=== PATIENT | male | born 1970 | race African-American/Black ===

== ENCOUNTER 2017-09-02 10:45 | Emergency (ER) | payer SELFPAY ==
[2017-09-02] MEDS ORDERED: Ibuprofen 800 MG TAB ONE (12:51)
== END 2017-09-02 13:00 | disposition home or self-care (01) ==
LOC: ERS 10:45
DX: M54.6 Pain in thoracic spine (principal); F17.210 Nicotine dependence, cigarettes, uncomplicated; V43.52XA Car driver injured in collision with other type car in traffic accident, initial encounter
CPT/HCPCS: 99283

== ENCOUNTER 2017-09-26 20:08 | Observation (INO) | payer OTHER, SELFPAY ==
[~2017-09-26 20:08] MED LIST: ISOVUE-370 76%-LOCM 1 ML ONE
[2017-09-26 20:23] LABS: #Basophils 0.1 thou/uL (0.0-0.2); #Eosinphils 0.1 thou/uL (0.0-0.7); #Lymphocytes 2.2 thou/uL (1.20-3.40); #Monocytes 0.6 thou/uL (0.11-0.59); %Basophils 0.8 % (0.0-1.0); %Eosinophils 1.3 % (0.0-10.0); %Lymphocytes 20.1 % (21.0-51.0); %Monocytes 5.5 % (0.0-10.0); %Neutrophils 72.4 % (42.0-75.0); Hemoglobin 11.7 g/dL (14.0-18.0); Mean Corpuscular Hemoglobin 29.8 pg (27.0-31.0); Mean Corpuscular Volume 87.8 fl (80.0-94.0); Mean Platelet Volume 6.6 fL (7.4-10.4); Platelet Count 253 thou/uL (130-400); RBC Distribution Width 12.1 % (11.5-14.5); Red Blood Cell (RBC) Count 3.92 mill/uL (4.70-6.10)
--- NOTE | 2017-09-26 20:26 | RAD ---
PORTABLE CHEST ONE VIEW: 09/26/17 at 8:19 p.m. HISTORY: Trauma, chest pain. FINDINGS/IMPRESSION: The heart size is normal. The lungs are expanded without focal areas of consolidation, pneumothorax o r pleural effusions. POS: [facility]
[2017-09-26 20:31] LABS: PTT 31.2 SEC (22.9-36.1)
[2017-09-26 20:35] LABS: Prothrombin Time 13.6 SEC (12.0-14.7)
--- NOTE | 2017-09-26 20:36 | CT ---
CT BRAIN 09/26/17 PROVIDED CLINICAL HISTORY: Level I trauma, ejected from horse. FINDINGS: There is no evidence for intracranial hemorrhage or mass effect. The ventricular system appears donna l in size and morphology. Minimal mucosal thickening seen involving the left maxillary sinus. The ext racranial soft tissues and osseous structures demonstrate no evidence for traumatic abnormality. IMPRESSION: No evidence for intracranial hemorrhage or mass effect. POS: [facility]
--- NOTE | 2017-09-26 20:38 | CT ---
CT CERVICAL SPINE 09/26/17 PROVIDED CLINICAL HISTORY: Level I trauma, ejected from horse. FINDINGS: there is no evidence for fracture or traumatic subluxation. Prominent end plate degenerative changes are seen at C6-7. No prevertebral soft tissue swelling apparent. The visualized lung apices appear cl ear. IMPRESSION: No evidence for fracture or traumatic subluxation. POS: [facility]
[2017-09-26 20:40] LABS: Acetaminophen Less than 6.0 mcg/mL (10.0-30.0); Alcohol 199 mg/dL (Less than 10); Salicylate Less than 8.0 mg/dL (15.0-30.0)
[2017-09-26 20:40] LABS: ALT (SGPT) 18 U/L (8-55); AST (SGOT) 28 U/L (5-34); Alkaline Phosphatase 42 U/L (40-150); Anion Gap 15 mmol/L (10-20); BUN (Urea Nitrogen) 12 mg/dL (8.9-20.6); Bilirubin, Total 0.4 mg/dL (0.2-1.2); Calc. Creatinine Clearance 0 mL/min (70-130); Calcium 8.4 mg/dL (7.8-10.44); Carbon Dioxide 21 mmol/L (22-29); Chloride 102 mmol/L (98-107); Estimated GFR-MDRD 83; Globulin 1.9 g/dL (2.4-3.5); Glucose 69 mg/dL (70-105); Potassium 3.8 mmol/L (3.5-5.1); Protein, Total 5.9 g/dL (6.0-8.3); Sodium 134 mmol/L (136-145)
[2017-09-26 21:12] LABS: Bilirubin Negative (Negative); Blood, Urine Negative (Negative); Clarity CLEAR (Clear); Glucose, Urine (Dipstick) Negative (Negative); Leukocyte Negative (Negative); Nitrite Negative (Negative); Protein, Urine (Dipstick) Negative (Neg-Trace); Specific Gravity, Urine 1.013 (1.002-1.036); Urobilinogen 0.2 mg/dL (0.2-1.0); pH, Urine 5.5 (5.0-9.0)
[2017-09-26] MEDS ORDERED: Dextrose 5% in Water 1,000 ML IV PRN (21:18)
[2017-09-26] MEDS ORDERED: Ondansetron PF 4 MG/2 ML Vial IVP PRN (21:18)
[2017-09-26] MEDS ORDERED: Dextrose 50% Abboject 50 ML SYRINGE SLOW IVP PRN (21:18)
[2017-09-26] MEDS ORDERED: Ondansetron ODT 4 MG TAB PO PRN (21:18)
[2017-09-26] MEDS ORDERED: traMADol HCl 50 MG TAB PO PRN ×2 (21:21)
[2017-09-26 21:25] LABS: Amphetamine Not Detected (NotDetected); Barbiturates Screen Not Detected (NotDetected); Benzodiazepine Screen Not Detected (NotDetected); Cocaine Metabolite Screen Detected (NotDetected); Medtox Control Line Valid? VALID (VALID); Medtox Reader # READER 1; Methadone Not Detected (NotDetected); Methamphetamine Not Detected (NotDetected); Opiate Screen Not Detected (NotDetected); Oxycodone Screen Not Detected (NotDetected); Phencyclidine (PCP) Not Detected (NotDetected); THC/Cannabinoid Screen Not Detected (NotDetected); Tricyclic Screen Not Detected (NotDetected)
--- NOTE | 2017-09-26 21:35 | CT ---
CT CHEST WITH IV CONTRAST CT ABDOMEN WITH IV CONTRAST CT PELVIS WITH IV CONTRAST CORONAL AND SAGITTAL REFORMATIONS OF THE THORACOLUMBAR SPINE 09/26/17 HISTORY: No mediastinal hematoma or intimal flap in the aorta is seen to suggest transection. No pericardial or pleural effusion are seen. There is a tiny pneumothorax in the anteromedial aspect of the right emanuel ng. Mild patchy ground glass infiltrates in the lung bases posteriorly may represent atelectatic mcguire ges versus mild pulmonary contusions. The liver, spleen, pancreas, adrenal glands, kidneys are intact . A small cyst is seen in the superior pole of the right kidney. The stomach is distended and fluid f illed. Gallbladder and urinary bladder appear intact. No free air or free fluid is seen in the abdome n or pelvis. No acute fracture or subluxation is seen in the thoracolumbar spine. An old right medial clavicular f racture is seen. IMPRESSION: 1. Tiny right sided pneumothorax. 2. Probable posterior pulmonary contusions. 3. No CT evidence of solid organ injury. Discussed over the telephone with ER physician, Dr. Waldo Hollins at 9:26 p.m. POS: [facility]
[2017-09-26] MEDS ORDERED: Hydrocortisone Sod Succ/PF 100 mg/2 ml Vial IVP SCH (23:15)
[2017-09-27] MEDS: Acetaminophen 500 MG TAB PO SCH ×2 (00:30→05:21)
[2017-09-27] MEDS: Sodium Chloride 0.9% 1,000 ML IV SCH ×2 (00:30→05:24)
[2017-09-27] MEDS: Ibuprofen 800 MG TAB PO SCH ×2 (00:30→05:21)
[2017-09-27 01:22] VITALS: BMI 21.2
--- NOTE | 2017-09-27 02:01 | HP ---
DATE OF ADMISSION: 09/26/2017 CHIEF COMPLAINT: Fall from horse. HISTORY: Patient is a 47-year-old male who was intoxicated, riding a horse. He fell backward off th e horse. He was difficult to arouse at the scene. He had a low blood pressure of 70/40 en route. I nitially complained of some right elbow pain only. Otherwise, no dyspnea. PAST MEDICAL HISTORY: Otherwise, healthy. PAST SURGICAL HISTORY: None. MEDICATIONS: None. ALLERGIES: No known drug allergies. SOCIAL HISTORY: He is . He drinks heavily. He works as a contractor. Smokes 1 pack per day . FAMILY HISTORY: Noncontributory. PHYSICAL EXAMINATION: VITAL SIGNS: Pulse 81, blood pressure 88/58, afebrile. GENERAL: He is awake, alert with a little bit of slurred speech, somewhat angry, but he knows where he is and the date and his name and everything else. HEENT: No evidence of trauma. No scalp hematomas. No lacerations. Pupils equal, round, and reacti ve. Extraocular motor intact. Pharynx clear. Dental unremarkable. NECK: In a collar, nontender. Trachea midline. CHEST: Nontender. LUNGS: Clear. HEART: Regular rate and rhythm. ABDOMEN: Soft, scaphoid, nontender, no palpable masses. EXTREMITIES: Unremarkable. His back is unremarkable. LABORATORY DATA AND X-RAY FINDINGS: His white count is 11, H&H 11 and 34, platelet count 253. Elect rolytes show a glucose of 69. ETOH of 199. His chest x-ray negative. CT of the C-spine negative. CT of the brain negative so far, it appears the CT of the abdomen and pelvis was negative. ASSESSMENT: Fall from horse and alcohol intoxication. PLAN: We will review the abdominal CT and then allow him to wake up and then discharged.
--- NOTE | 2017-09-27 07:47 | RAD ---
PORTABLE CHEST: DATE: 09/27/17. PROVIDED CLINICAL HISTORY: Pneumothorax. FINDINGS: Comparison is made with the study dated 09/26/17. Cardiac and mediastinal silhouette is within normal limits. No focal consolidation or pleural fluid evident. No radiographically apparent pneumothorax . IMPRESSION: No radiographically apparent pneumothorax. POS: [facility]
[2017-09-27 08:28] VITALS: BP 107/70; TEMP 98.4
[2017-09-27] MEDS ORDERED: Famotidine 20 MG TAB PO SCH (09:00)
--- NOTE | 2017-09-27 21:53 | DIS ---
DATE OF ADMISSION: 09/26/2017 DATE OF DISCHARGE: 09/27/2017 ADMISSION DIAGNOSES: 1. Status post bucked off livestock. 2. Acute alcohol intoxication. 3. Positive drug screen for cocaine. 4. Altered mental status likely secondary to above. 5. Tiny right apical pneumothorax. DISCHARGE DIAGNOSES: 1. Status post bucked off livestock. 2. Acute alcohol intoxication. 3. Positive drug screen for cocaine. 4. Altered mental status likely secondary to above. 5. Tiny right apical pneumothorax. CONSULTANTS: None. PROCEDURES: None. HOSPITAL COURSE: Ronnell Tran is a 47-year-old male who presented to [facility] status post lucas ng bucked off a livestock. He was initially a level 1 trauma secondary to hypotension. Patient was hemodynamically stable upon arrival to our facility. He was evaluated in the emergency room and foun d to have a tiny right apical pneumothorax. Otherwise, no evidence of traumatic injury. The patient was admitted for observation. A repeat chest x-ray was stable. After patient's mental status impro mary, pain was controlled via p.o. analgesics. C-collar was cleared. He was tolerating a general t and mobilizing independently. He was stable for discharge on 09/27/2017. DISCHARGE DISPOSITION: Home. DISCHARGE CONDITION: Good. PHYSICAL EXAMINATION: VITAL SIGNS: Temperature 98.4, pulse 72, respirations 16, O2 sat 99% on room air, blood pressure 107 /70. GENERAL: Well-developed male in no acute distress, resting in bed. HEAD: Normocephalic, atraumatic. NECK: Supple. Trachea is midline. No midline tenderness to palpation. Range of motion within norm al limits for patient. C-collar is cleared clinically. Normal work of breathing, symmetric rise. CARDIOVASCULAR: Regular rate and rhythm. GASTROINTESTINAL: Abdomen is soft, nontender, nondistended. MUSCULOSKELETAL: Moves all extremities x4. NEUROLOGIC: GCS 15. No focal deficit noted. DISCHARGE INSTRUCTIONS: Discharge instructions were provided. The patient vocalized understanding. He has activity as tolerated. He may resume any home medications. He should abstain from any illic it drugs. The patient vocalizes understanding prior to discharge. DISCHARGE MEDICATIONS: The patient was discharged on [id number] Tylenol and ibuprofen. FOLLOWUP APPOINTMENTS: The patient is [facility] weeks with a rep eat chest x-ray. This is merely a summary of the patient's hospitalization. For more in depth information, please see his medical record in its entirety.
--- NOTE | 2017-10-26 14:41 | EKG ---
Test Reason : TRAUMA Blood Pressure : / mmHG Vent. Rate : 079 BPM Atrial Rate : 079 BPM P-R Int : 152 ms QRS Dur : 078 ms QT Int : 378 ms P-R-T Axes : 078 032 066 degrees QTc Int : 433 ms Normal sinus rhythm Normal ECG Reconfirmed by WINIFRED MASSEY ([id number]), film editor ANILA PADILLA ([id number]) on 10/26/2017 2:41:09 PM Referred By: Confirmed By:WINIFRED MASSEY
== END 2017-09-27 10:47 | disposition home or self-care (01) ==
LOC: ERS 20:08 → SURG A 21:18
PROVIDERS: ADMIT Surgery; ATTEND Surgery
DX: F10.129 Alcohol abuse with intoxication, unspecified (principal); R41.82 Altered mental status, unspecified; J93.83 Other pneumothorax; F17.210 Nicotine dependence, cigarettes, uncomplicated; Y90.6 Blood alcohol level of 120-199 mg/100 ml; V80.010A Animal-rider injured by fall from or being thrown from horse in noncollision accident, initial encounter
CPT/HCPCS: 36415; 70450; 71045; 71260; 72125; 74177; 80053; 80306; 80307; 81003; 82150; 82533; 85025; 85610; 85730; 86850; 86900; 86901; 93005; 96360; 96361; 96374; G0378; G0390; J1720

== ENCOUNTER 2018-07-08 15:59 | Emergency (ER) | payer SELFPAY ==
[2018-07-08 16:25] LABS: #Basophils 0.1 thou/uL (0.0-0.2); #Eosinphils 0.1 thou/uL (0.0-0.7); #Lymphocytes 1.9 thou/uL (1.20-3.40); #Monocytes 0.5 thou/uL (0.11-0.59); #Neutrophils 3.6 thou/uL (1.40-6.50); %Basophils 1.4 % (0.0-1.0); %Eosinophils 1.2 % (0.0-10.0); %Lymphocytes 31.1 % (21.0-51.0); %Monocytes 7.7 % (0.0-10.0); %Neutrophils 58.8 % (42.0-75.0); Mean Corpuscular HGB CONC 32.5 g/dL (32.0-36.0); Mean Corpuscular Hemoglobin 28.9 pg (27.0-31.0); Mean Corpuscular Volume 88.9 fL (78.0-98.0); Mean Platelet Volume 6.9 fL (7.4-10.4); Platelet Count 256 thou/uL (130-400); Red Blood Cell (RBC) Count 4.17 mill/uL (4.70-6.10); White Blood Cell (WBC) Count 6.1 thou/uL (4.8-10.8)
--- NOTE | 2018-07-08 16:25 | RAD ---
CHEST 1 VIEW: HISTORY: Chest pain. COMPARISON: 09/27/2017. FINDINGS: Cardiac silhouette is magnified by projection. Pulmonary vasculature is unremarkable. Mediastinum i s midline. Azygous fissure at the right apex is stable. No lobar consolidation or evidence of pneum othorax. IMPRESSION: No active cardiopulmonary abnormalities are demonstrated. POS: [facility]
[2018-07-08 16:45] LABS: ALT (SGPT) 11 U/L (8-55); AST (SGOT) 18 U/L (5-34); Alkaline Phosphatase 45 U/L (40-150); Anion Gap 13 mmol/L (10-20); BUN (Urea Nitrogen) 13 mg/dL (8.9-20.6); Bilirubin, Total 0.2 mg/dL (0.2-1.2); CK (CPK) 506 U/L (30-200); Calc. Creatinine Clearance 0 mL/min (70-130); Calcium 9.1 mg/dL (7.8-10.44); Carbon Dioxide 27 mmol/L (22-29); Chloride 106 mmol/L (98-107); Estimated GFR-MDRD 70; Globulin 2.3 g/dL (2.4-3.5); Glucose 89 mg/dL (70-105); Potassium 3.8 mmol/L (3.5-5.1); Protein, Total 6.3 g/dL (6.0-8.3); Sodium 142 mmol/L (136-145)
== END 2018-07-08 17:18 | disposition home or self-care (01) ==
LOC: ERS 15:59
DX: R07.89 Other chest pain (principal); Z71.6 Tobacco abuse counseling; F17.210 Nicotine dependence, cigarettes, uncomplicated
CPT/HCPCS: 36415; 71045; 80053; 82550; 84484; 85025; 93005; 99406

== ENCOUNTER 2021-10-26 13:11 | Emergency (ER) | payer SELFPAY | END 2021-10-26 14:22 | disposition home or self-care (01) | LOC: ERS 13:11 | DX: M62.830 Muscle spasm of back (principal); F17.210 Nicotine dependence, cigarettes, uncomplicated; X50.0XXA Overexertion from strenuous movement or load, initial encounter; Y92.129 Unspecified place in nursing home as the place of occurrence of the external cause; Y99.0 Civilian activity done for income or pay | CPT/HCPCS: 99283 ==

== ENCOUNTER 2022-09-13 11:39 | Emergency (ER) | payer SELFPAY | END 2022-09-13 13:18 | disposition home or self-care (01) | LOC: ERS 11:39 | DX: S62.521A Displaced fracture of distal phalanx of right thumb, initial encounter for closed fracture (principal); F17.210 Nicotine dependence, cigarettes, uncomplicated; W26.8XXA Contact with other sharp object(s), not elsewhere classified, initial encounter ==